=== PATIENT | male | born 1970 | race Caucasian/White ===

== ENCOUNTER 2017-04-11 09:38 | Emergency (ER) | payer OTHER ==
[~2017-04-11 09:38] MED LIST: COL100 PO; NORCO1 TA2 PO; PRI20 PO; VICES PO
[2017-04-11 13:18] VITALS: BP 118/64
== END 2017-04-11 13:18 | disposition home or self-care (01) ==
LOC: ED 09:38
DX: N50.812 Left testicular pain (principal); Z88.6 Allergy status to analgesic agent; Z88.5 Allergy status to narcotic agent